=== PATIENT | female | born 1940 | race Caucasian/White ===

== ENCOUNTER 2018-02-11 18:23 | Emergency (ER) | payer MEDICARE, OTHER ==
[~2018-02-11] VITALS: Ht 170.2 cm; Wt 78.0 kg
[~2018-02-11 18:23] MED LIST: COUMADIN2.5 MG PO; GLIPIZIDE XL5 MG PO; LEVOTHYROXINE112 MCG PO; LEVOTHYROXINE125 MCG PO; LEVOTHYROXINE150 MCG PO; LISINOPRIL10 MG PO; LISINOPRIL20 MG PO; METFORMIN HCL500 M1 PO; METFORMIN HCL850 MG PO; METOPROLOL SUCC50 MG PO; PENICILLIN V P500 MG PO; PIROXICAM20 MG PO; TRAMADOL HCL50 MG PO; WARFARIN SODIU2.5 MG PO; [UNRECOGNIZED DRUG - SUPPLY] MC
[2018-02-11] MEDS ORDERED: ELIQUIS5 MG PO (18:43)
[2018-02-11] MEDS ORDERED: LISINOPRIL10 MG PO (18:43)
[2018-02-11] MEDS ORDERED: NORCO 5-325 TA1 EACH PO (19:59)
== END 2018-02-11 20:10 | disposition home or self-care (01) ==
LOC: ED 18:23
DX: S30.0XXA Contusion of lower back and pelvis, initial encounter (principal); W01.0XXA Fall on same level from slipping, tripping and stumbling without subsequent striking against object, initial encounter; E11.40 Type 2 diabetes mellitus with diabetic neuropathy, unspecified; E78.5 Hyperlipidemia, unspecified; K21.9 Gastro-esophageal reflux disease without esophagitis; I10 Essential (primary) hypertension; E03.9 Hypothyroidism, unspecified; I25.2 Old myocardial infarction; Z91.041 Radiographic dye allergy status; Z79.899 Other long term (current) drug therapy; Z79.84 Long term (current) use of oral hypoglycemic drugs
CPT/HCPCS: 72100; 72170; 99283

== ENCOUNTER 2023-05-10 16:36 | Emergency (ER) | payer MEDICARE, OTHER ==
[~2023-05-10] VITALS: Ht 170.2 cm; Wt 78.0 kg
--- OUTSIDE RECORDS SUMMARY | ~2023-05-10 | XMS | Continuity of Care Document ---
Demographics + + + | Address | [address] | | | [place] [address] | + + + | Preferred Language | Unknown | + + + | Marital Status | | + + + | Latter Day Affiliation | Unknown | + + + | Race | White | + + + | Ethnic Group | Unknown | + + + Author + + + | Author | [facility] | + + + | Organization | [facility] | + + + | Address | [address] | | | [place] [address] | + + + | Phone | | + + + Care Team Providers + + + + | Care Picking Belt Operator Name | Role | Phone | + + + + Unavailable | Unavailable | + + + + Allergies and Intolerances + + + + + + | date | description | facility | reaction | severity | + + + + + + | (no date) | iodine | [facility] | (no reaction) | (no severity) | + + + + + + Encounters No information. Functional Status No information. Immunizations No information. Medications No information. Problems + + + + | date | description | facility | + + + + | 2023-02-10 07:03 | DISP FX OF MIDDLE PHALANX | [facility] | | | OF LEFT LITTLE FINGER, 7THG | | | | | | + + + + | 2023-02-25 11:03 | LOCALIZED EDEMA | [facility] | + + + + Procedures No information. Results/Labs No information. Social History No information. Vital Signs No information."
[~2023-05-10 16:36] MED LIST changes: +ELIQUIS5 MG PO; +NORCO 5-325 TA1 EACH PO
[2023-05-10 17:00] LABS: BASOPHILS 0.3 % (0-2); EOSINOPHILS 1.7 % (0-6); HEMATOCRIT 36.9 % (35.0-50.0); HEMOGLOBIN 12.3 g/dL (12.0-18.0); LYMPHOCYTES 10.4 % (24-44); MCH 31.7 (27-36); MCHC 33.2 g/dl (30-36); MCV 95.3 fl (81-99); MONOCYTES 7.1 % (0-12); NEUTROPHILS 80.5 % (39-80); PLATELET COUNT 270 K/uL (140-440); RBC 3.87 M/ul (4.3-5.7); RDW 14.6 (10.5-15.0)
[2023-05-10 17:14] LABS: ALBUMIN 3.1 g/dL (3.4-5.0); ALBUMIN/GLOBULIN RATIO 0.86 (1.1-2.4); ANION GAP 9.9 (7-21); BILIRUBIN, TOTAL 0.4 ng/dL (0.2-1.0); BUN/CREATININE RATIO 18.42 (6.0-28.6); CALCIUM 8.8 mg/dL (8.5-10.1); CREATININE, SERUM 1.14 mg/dL (0.55-1.02); POTASSIUM 3.9 mmol/L (3.5-5.1); PROTEIN, TOTAL 6.7 g/dL (6.4-8.2)
[2023-05-10 18:25] LABS: BILIRUBIN, URINE NEGATIVE (negative); BLOOD/HGB, URINE MODERATE (Negative); KETONE, URINE NEGATIVE (Negative); LEUK ESTERASE, URINE NEGATIVE (negative); NITRITE, URINE NEGATIVE (negative)
[2023-05-10 18:26] LABS: EPITHELIAL CELLS, URINE SQUAMOUS 1+ /lpf (0-1+); REFLEX CULTURE, URINE No (No); WHITE BLOOD CELLS, URINE 0-1 /HPF (0-5)
[2023-05-10 18:46] VITALS: BP 138/87
== END 2023-05-10 18:46 | disposition home or self-care (01) ==
LOC: ED 16:36
PROVIDERS: Family Medicine
DX: S16.1XXA Strain of muscle, fascia and tendon at neck level, initial encounter (principal); W19.XXXA Unspecified fall, initial encounter; R41.0 Disorientation, unspecified; I10 Essential (primary) hypertension; E03.9 Hypothyroidism, unspecified; E11.42 Type 2 diabetes mellitus with diabetic polyneuropathy; Z88.8 Allergy status to other drugs, medicaments and biological substances; Z79.01 Long term (current) use of anticoagulants; Z79.84 Long term (current) use of oral hypoglycemic drugs; Z79.899 Other long term (current) drug therapy
CPT/HCPCS: 36415; 70450; 71045; 72125; 73552; 80053; 81001; 85025